=== PATIENT | female | born 1995 | race Caucasian/White ===

== ENCOUNTER 2021-01-21 01:01 | Emergency (ER) | payer BC ==
[~2021-01-21] VITALS: Ht 152.4 cm; Wt 64.0 kg
[2021-01-21 02:04] LABS: HEMATOCRIT 37.4 % (36.0-48.0); HEMOGLOBIN 12.6 g/dL (12.0-16.0); MEAN CORPUSCULAR HEMOGLOBIN 31.8 pg (28.0-32.0); PLATELET 300 x1000/uL (130-400); RED BLOOD CELL COUNT 3.98 mill/uL (4.2-5.4); RED CELL DISTRIBUTION WIDTH 13.2 % (11.6-14.6)
[2021-01-21 02:05] LABS: CHLORIDE 107 mEq/L (98-107)
[2021-01-21 03:20] VITALS: BP 123/79
[2021-01-21] MEDS ORDERED: IOHEXOL-300 100 ML BOTTLE ONE (03:32)
== END 2021-01-21 04:10 | disposition home or self-care (01) ==
LOC: ER 01:01
DX: R51.9 Headache, unspecified (principal); R10.9 Unspecified abdominal pain; Q03.0 Malformations of aqueduct of Sylvius
CPT/HCPCS: 36415; 70450; 71045; 72125; 74177; 80053; 81025; 85027; 99285; Q9967